=== PATIENT | female | born 1950 | race Caucasian/White ===

== ENCOUNTER 2017-06-28 15:25 | Emergency (ER) | payer MEDICARE, BC ==
[~2017-06-28] VITALS: Ht 154.9 cm; Wt 56.0 kg
[2017-06-28 15:28] VITALS: BP 139/87; PULSE 80; RESP 16; TEMP 98.3; O2SAT 97
[2017-06-28] MEDS ORDERED: LEVO.05 PO (16:27)
[2017-06-28] MEDS ORDERED: SUMA100T2 PO (16:27)
[2017-06-28] MEDS ORDERED: MELO15TA20 PO (16:27)
[2017-06-28] MEDS ORDERED: TRAM50 PO (16:27)
[2017-06-28] MEDS ORDERED: CLON1TAB PO (16:27)
[2017-06-28] MEDS ORDERED: ATOR20TA15 PO (16:27)
[2017-06-28] MEDS ORDERED: LISI-515 PO (16:27)
[2017-06-28] MEDS ORDERED: VENL75TA PO (16:27)
[2017-06-28] MEDS ORDERED: KETOROLAC TROMETHAMINE 60 MG/2 ML (IM) VIAL IM ONE (16:30)
[2017-06-28] MEDS ORDERED: MEDR4PAK PO (16:35)
[2017-06-28] MEDS ORDERED: ROBA750T PO (16:35)
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
== END 2017-06-28 16:56 | disposition home or self-care (01) ==
LOC: PHED 15:25 → PHEFT 16:56
DX: M54.31 Sciatica, right side (principal); F41.9 Anxiety disorder, unspecified; E78.00 Pure hypercholesterolemia, unspecified; I10 Essential (primary) hypertension; E07.9 Disorder of thyroid, unspecified; F17.200 Nicotine dependence, unspecified, uncomplicated; Z79.899 Other long term (current) drug therapy; Z88.8 Allergy status to other drugs, medicaments and biological substances
CPT/HCPCS: 96372; 99284; J1885

== ENCOUNTER → 2017-08-05 | Outpatient (CLI) | payer MEDICARE, BC ==
[~2017-08-05] MED LIST: ALEN1TAB48 PO; ATOR20TA15 PO; CETI10 PO; CHOL1CAP34 PO; CHOL1TAB42 PO; CLON1TAB PO; HYDR-3366 PO; IMIT100T PO; LEVO.05 PO; LISI-515 PO; MEDR4PAK PO; MELO15TA20 PO; METR0.756 TOPICAL; ROBA750T PO; SIMV40TA PO; SUMA100T2 PO; TRAM50 PO; VENL75TA PO; ZOLO50TA PO
[2017-08-05 13:37] LABS: AUTOMATED NEUTROPHIL # 10.5 TH/MM3 (1.8-7.7); BASOPHIL # 0.1 TH/MM3 (0-0.2); BASOPHIL % 0.5 % (0.0-2.0); EOSINOPHIL # 0.1 TH/MM3 (0-0.4); EOSINOPHIL % 0.8 % (0.0-4.0); HEMATOCRIT 41.4 % (35.0-46.0); HEMOGLOBIN 13.9 GM/DL (11.6-15.3); LYMPH % 12.3 % (9.0-44.0); LYMPHOCYTE # 1.6 TH/MM3 (1.0-4.8); MEAN CELL VOLUME 90.9 FL (80.0-100.0); MEAN CORPUSCULAR HEMOGLOBIN 30.6 PG (27.0-34.0); MEAN CORPUSCULAR HGB CONC 33.7 % (32.0-36.0); MEAN PLATELET VOLUME 7.8 FL (7.0-11.0); MONO % 5.1 % (0.0-8.0); MONOCYTE # 0.7 TH/MM3 (0-0.9); NEUT % 81.3 % (16.0-70.0); PLATELET COUNT 290 TH/MM3 (150-450); RED BLOOD COUNT 4.55 MIL/MM3 (4.00-5.30); RED CELL DISTRIBUTION WIDTH 13.5 % (11.6-17.2)
[2017-08-05 13:40] LABS: PROTHROMBIN TIME - PATIENT 10.1 SEC (9.8-11.6)
[2017-08-05 14:02] LABS: ALBUMIN 4.2 GM/DL (3.4-5.0); ALT (GPT) 20 U/L (10-53); AST (GOT) 18 U/L (15-37); BICARBONATE 29.9 MEQ/L (21.0-32.0); BLOOD UREA NITROGEN 16 MG/DL (7-18); CALCIUM 9.4 MG/DL (8.5-10.1); CHLORIDE 103 MEQ/L (98-107); CREATININE 0.81 MG/DL (0.50-1.00); GLOMERULAR FILTRATION RATE 70 ML/MIN (>89); GLUCOSE,FASTING 102 MG/DL (74-99); SODIUM (NA) 140 MEQ/L (136-145)
[2017-08-05 14:04] LABS: ALKALINE PHOSPHATASE 101 U/L (45-117); TOTAL BILIRUBIN ADULT 0.5 MG/DL (0.2-1.0); TOTAL PROTEIN 7.4 GM/DL (6.4-8.2)
[2017-08-05 14:22] LABS: BACTERIA, URINE OCC /hpf; BILIRUBIN, URINE NEG (NEG); BLOOD, URINE NEG (NEG); GLUCOSE,URINE NEG (NEG); HYALINE CAST, URINE 1 /lpf (RARE); KETONE, URINE NEG (NEG); MUCUS URINE FEW /lpf (OCC); NITRITE,URINE NEG (NEG); PH, URINE 6.5 (5.0-8.5); SQUAMOUS EPITHELIAL CELL URINE 4 /hpf (0-5); TRANSITIONAL EPI CELLS, URINE <1 /hpf; URINE COLOR YELLOW (YELLW/STRAW); URINE LEUKOCYTE ESTERASE SMALL (NEG)
--- NOTE | 2017-08-05 14:34 | RADRPT ---
EXAM DATE/TIME: 08/05/2017 14:24 [facility] COMPARISON: No previous studies available for comparison. INDICATIONS : Pre op. Evaluate for pneumothorax, pneumonia, or communicable diseases. MEDICAL HISTORY : None. SURGICAL HISTORY : None. ENCOUNTER: Initial ACUITY: 1 day PAIN SCORE: 0/10 LOCATION: Bilateral chest FINDINGS: PA and lateral views of the chest demonstrates hyperinflation which can be seen with CO PD. No infiltrates are seen. Heart is normal in size. The mediastinal contours are unremarkable. O sseous structures are intact. CONCLUSION: Hyperinflation which can be seen with COPD. No evidence for an infiltrate. Jatinder Fowler MD on August 05, 2017 at 14:31 Board Certified Radiologist. This report was verified electronically.
--- NOTE | 2017-08-06 09:26 | EKG ---
Date Performed: 08/05/2017 Time Performed: 13:26:12 PTAGE: 67 years EKG: Sinus rhythm WITH SHORT CT INTERVAL BORDERLINE ECG NO PREVIOUS TRACING DOCTOR: Quintin Sinclair Interpretating Date/Time 08/06/2017 09:23:39
== END ==
LOC: CPRE 13:03
PROVIDERS: ATTEND Neurological Surgery
DX: Z01.812 Encounter for preprocedural laboratory examination (principal); Z01.810 Encounter for preprocedural cardiovascular examination; Z01.811 Encounter for preprocedural respiratory examination; M48.062 Spinal stenosis, lumbar region with neurogenic claudication; R82.99 Other abnormal findings in urine; R94.31 Abnormal electrocardiogram [ECG] [EKG]; Z79.01 Long term (current) use of anticoagulants
CPT/HCPCS: 36415; 71046; 80053; 81001; 85025; 85610; 85730; 87086; 87640; 87641; 93005

== ENCOUNTER → 2017-08-12 | Day surgery (SDC) | payer MEDICARE, BC ==
[~2017-08-12] VITALS: Ht 154.9 cm; Wt 52.1 kg
[~2017-08-12] MED LIST changes: +*morphine SULFATE 10 MG/ML PERIprocedure ONLY ONE; +*morphine SULFATE 4 MG/ML PERIprocedure ONLY ONE; +ACETAMINOPHEN 1000 MG/100 ML 100 ML IV ONE; +ACETAMINOPHEN/HYDROcodone 325 MG/5 MG TAB ONE; +ACETAMINOPHEN/HYDROcodone 325 MG/5 MG TAB PO ONE; -ATOR20TA15 PO; +BUPIVACAINE/EPINEPHRINE 0.5% PF 30 ML VIAL ONE; +CHLORHEXIDINE GLUCONATE 2 % 1 PACK (2 CLOTHS) TOPICAL PRN; +DEXAMETHASONE SOD PHOS 4 MG/ML VIAL IV ONE; +DO NOT ADM ANY ANTICOAGULANT DRUGS PRN; +GELFOAM SIZE 100 ONE; +GLYCOPYRROLATE 1 MG/5 ML SYRINGE IV PUSH ONE; +INSULIN HUMAN REGULAR 1,000 UNITS/10 ML VIAL SQ PRN; +LACTATED RINGER'S 1000 ML INJ 1,000 ML IV ONE; +LACTATED RINGER'S 1000 ML IV PRN; +LIDOCAINE HCL 1% PF 5 ML SYRINGE OTHER ONE; -MEDR4PAK PO; +METOPROLOL TARTRATE 25 MG TAB PO PRN; -METR0.756 TOPICAL; +MIDAZOLAM HCL 2 MG/2 ML VIAL ONE; +MORPHINE SULFATE 4 MG/ML INJ ONE; +NEOSTIGMINE 5 MG/5 ML SYRINGE IV PUSH ONE; +ONDANSETRON HCL 4 MG/2 ML VIAL IV ONE; +PHENYLEPH/NS 1000 MCG/10 ML SYR IV ONE; +POVIDONE IODINE 5% (ANTISEPSIS KIT) 4 APPLICATIONS EACH NARE PRN; +PROPOFOL 200 MG/20 ML AMP IV ONE; +ROCURONIUM INJ 50 MG/5 ML SYRINGE IV PUSH ONE; +SODIUM CHLOR 0.9% 1000 ML INJ 1,000 ML IV SCH; +SODIUM CHLORID 0.9% 500 ML IV PRN; -SUMA100T2 PO; +THROMBIN (TOPICAL) 5,000 UNIT VIAL ONE; -TRAM50 PO; +VANCOMYCIN 1 GM/200 ML PREMIX ON-CALL IV SCH; +VANCOMYCIN HCL 1000 MG VIAL ONE; -ZOLO50TA PO; +methylPREDNISolone ACETATE 40 MG/ML VIAL ONE
--- NOTE | 2017-08-12 11:33 | PD.OP ---
Miriam SALVADOR MckinleyP Operative Report Date of Surgery: Aug 12, 2017 Preoperative Diagnosis: Severe L4-5 lumbar stenosis from facet and ligamentum flavum hypertrophy with associated low back pain and neurogenic claudication/radiculopathy Postoperative Diagnosis: Same Procedure: Lumbar L4-5 bilateral decompressive laminectomies and medial facetectomies; microsurgical technique Anesthesia: Gen. endotracheal by [employer] Surgeon: Jared Adams M.D. Fire Control System Installer(s): Maranda Carr Operation and Findings: Following administration of general endotracheal anesthesia, patient received vancomycin 1 g intravenously. Sequential compression devices were placed for DVT prophylaxis. He was then turned in prone position on Len frame and the Momo table and all pressure points adequately padded. The lumbar region was then shaved and prepped with a Betadine and ChloraPrep. Sterile draping undertaken with Ioban. Midline incision overlying the L4-5 level was then made after infiltrating the skin with 0.5% Marcaine with epinephrine solution. The skin incision was made extending down through the fascia and then using the subperiosteal plane on the right side the muscular attachments to the spinous process and lamina were detached. Intraoperative fluoroscopy was used for level confirmation and further dissection undertaken using microtechnique with microscope magnification. The inferior portion of the L4 and superior portion of the L5 lamina was then drilled out and the underlying ligamentum flavum also removed. There was significant facet arthropathy noted and the medial portion of facet was also resected and the lateral recess along with the foramen decompressed. Epidural venous stasis which he with the bipolar cautery along with Gelfoam and thrombin and bone wax used at the laminotomy edges for hemostasis. The thecal sac was then gently retracted through the left-sided hemilaminotomy approach and the right side hypertrophied ligamentum flavum and facets were resected with circumferential spinal canal decompression achieved. The interspinous ligament and spinous processes were preserved. The area was then copiously irrigated with vancomycin solution. Depo-Medrol 40 mg also injected in the epidural space. The retractors removed and the muscle fascia proximal using 2-0 Vicryl interrupted stitches. 3-0 Vicryl subcuticular stitches were also placed in an interrupted fashion and planned skin closure was with Mastisol and Steri-Strips. A sterile dressing was then applied and the patient then turned in the supine position and extubated and taken to recovery room in stable condition. There were no intraoperative complications and all sponge and needle count was correct at the end of the procedure. Estimated blood loss about 50 cc. Jared Adams MD Aug 12, 2017 11:33
[2017-08-12 13:05] VITALS: BP 98/57; PULSE 95; RESP 18; O2SAT 96
--- NOTE | 2017-08-12 15:13 | RADRPT ---
EXAM DATE/TIME: 08/12/2017 08:42 [facility] COMPARISON: No previous studies available for comparison. INDICATIONS : Right leg pain with numbness. MEDICAL HISTORY : None. SURGICAL HISTORY : None. ENCOUNTER: Initial ACUITY: 1 day PAIN SCORE: 8/10 LOCATION: Right lumbar spine FINDINGS: The surgical instruments are noted posteriorly at the L4 and L5 levels. CONCLUSION: Surgical instruments are noted posteriorly at the L4 and L5 levels. Mello Santiago MD on August 12, 2017 at 15:11 Board Certified Radiologist. This report was verified electronically.
== END | disposition home or self-care (01) ==
LOC: HSDC 05:26
PROVIDERS: ATTEND Neurological Surgery
DX: M48.062 Spinal stenosis, lumbar region with neurogenic claudication (principal); M54.16 Radiculopathy, lumbar region; M54.41 Lumbago with sciatica, right side; M46.96 Unspecified inflammatory spondylopathy, lumbar region; G89.29 Other chronic pain; I10 Essential (primary) hypertension; E03.9 Hypothyroidism, unspecified; E78.4 Other hyperlipidemia; Z85.038 Personal history of other malignant neoplasm of large intestine
CPT/HCPCS: 00630; 63047; 72020; 76000; J0131; J1030; J2250; J2270; J3010; J3370; J7120; J1100; J2370; J2405; J2710